=== PATIENT | male | born 1990 | race Caucasian/White ===

== ENCOUNTER 2018-08-20 09:05 | Emergency (ER) | payer BC ==
[2018-08-20] MEDS ORDERED: Ketorolac 60 MG/2 ML SDV IM ONE (09:26)
--- NOTE | 2018-08-20 09:44 | EDM.PDOC ---
ED HPI GENERAL MEDICAL PROBLEM - General Chief Complaint: Flank Pain Stated Complaint: KIDNEY PAIN Time Seen by Provider: 08/20/18 09:43 - History of Present Illness INITIAL COMMENTS - FREE TEXT/NARRATIVE: HISTORY AND PHYSICAL: History of present illness: Patient is 27-year-old white male presents with concern of bilateral flank pain he states is across his low back he has been lifting weights quite enthusiastically as of late with heavier weight but he does not recall specific injury he denies history of urolithiasis is been no vomiting diarrhea or other complaints. Review of systems: As per history of present illness and below otherwise all systems reviewed and negative. Past medical history: As per history of present illness and as reviewed below otherwise noncontributory. Surgical history: As per history of present illness and as reviewed below otherwise noncontributory. Social history: No reported history of drug or alcohol abuse. Family history: As per history of present illness and as reviewed below otherwise noncontributory. Physical exam: HEENT: Atraumatic, normocephalic, pupils reactive, negative for conjunctival pallor or scleral icterus, mucous membranes moist, throat clear, neck supple, nontender, trachea midline. Lungs: Clear to auscultation, breath sounds equal bilaterally, chest nontender. Heart: S1S2, regular, negative for clicks, rubs, or JVD. Abdomen: Soft, nondistended, nontender. Negative for masses or hepatosplenomegaly. Bilateral costovertebral tenderness. Pelvis: Stable nontender. Genitourinary: Deferred. Rectal: Deferred. Extremities: Atraumatic, negative for cords or calf pain. Neurovascular unremarkable. Neuro: Awake, alert, oriented. Cranial nerves II through XII unremarkable. Cerebellum unremarkable. Motor and sensory unremarkable throughout. Exam nonfocal. Diagnostics: CBC CMP UA Therapeutics: Toradol 60 mg IM Impression: #1 bilateral flank pain Definitive disposition and diagnosis as appropriate pending reevaluation and review of above. Bilateral Flank Pain Score (Numeric/FACES): 8 - Related Data Allergies Allergy/AdvReac Type Severity Reaction Status Date / Time No Known Allergies Allergy Verified 08/20/18 09:22 Home Meds: Home Meds . [No Known Home Meds] 08/20/18 [History] Past Medical History Respiratory History: Reports: Asthma Social & Family History - Family History Family Medical History: Noncontributory - Tobacco Use Smoking Status *Q: Never Smoker - Caffeine Use Caffeine Use: Reports: Energy Drinks Caffeine Use Comment: 1 drink/day - Recreational Drug Use Recreational Drug Use: No ED ROS GENERAL - Review of Systems Review Of Systems: ROS reveals no pertinent complaints other than HPI. ED EXAM, GENERAL - Physical Exam Exam: See Below (The dictation) Course - Vital Signs Last Recorded V/S: Last Vital Signs Temp 36.2 C 08/20/18 09:19 Pulse 86 08/20/18 09:19 Resp 18 08/20/18 09:19 BP 150/95 H 08/20/18 09:19 Pulse Ox 96 08/20/18 09:19 - Orders/Labs/Meds Labs: Laboratory Tests 08/20/18 08/20/18 08/20/18 Range/Units 09:26 09:37 09:37 WBC 5.89 (4.0-11.0) K/uL RBC 5.23 (4.50-5.90) M/uL Hgb 15.4 (13.0-17.0) g/dL Hct 46.2 (38.0-50.0) % MCV 88.3 (80.0-98.0) fL MCH 29.4 (27.0-32.0) pg MCHC 33.3 (31.0-37.0) g/dL RDW Std Deviation 41.7 (28.0-62.0) fl RDW Coeff of Una 13 (11.0-15.0) % Plt Count 227 (150-400) K/uL MPV 11.40 (7.40-12.00) fL Neut % (Auto) 46.0 L (48.0-80.0) % Lymph % (Auto) 37.9 (16.0-40.0) % [place] % (Auto) 8.3 (0.0-15.0) % Eos % (Auto) 7.3 H (0.0-7.0) % Baso % (Auto) 0.5 (0.0-1.5) % Neut # (Auto) 2.7 (1.4-5.7) K/uL Lymph # (Auto) 2.2 (0.6-2.4) K/uL [place] # (Auto) 0.5 (0.0-0.8) K/uL Eos # (Auto) 0.4 (0.0-0.7) K/uL Baso # (Auto) 0.0 (0.0-0.1) K/uL Nucleated RBC % 0.0 /100WBC Nucleated RBCs # 0 K/uL Sodium 138 (136-148) mmol/L Potassium 4.0 (3.5-5.1) mmol/L Chloride 103 (98-107) mmol/L Carbon Dioxide 27.4 (21.0-32.0) mmol/L BUN 15 (7.0-18.0) mg/dL Creatinine 1.0 (0.8-1.3) mg/dL Est Cr Clr Drug Dosing 111.94 mL/min Estimated GFR (MDRD) > 60.0 ml/min Glucose 97 (74-106) mg/dL Calcium 9.8 (8.5-10.1) mg/dL Total Bilirubin 0.7 (0.2-1.0) mg/dL AST 26 (15-37) IU/L ALT 52 (14-63) IU/L Alkaline Phosphatase 73 (46-116) U/L Total Protein 7.9 (6.4-8.2) g/dL Albumin 4.0 (3.4-5.0) g/dL Globulin 3.9 (2.6-4.0) g/dL Albumin/Globulin Ratio 1.0 (0.9-1.6) Urine Color YELLOW Urine Appearance CLEAR Urine pH 6.5 (5.0-8.0) Ur Specific [place] 1.020 (1.001-1.035) Urine Protein NEGATIVE (NEGATIVE) mg/dL Urine Glucose (UA) NEGATIVE (NEGATIVE) mg/dL Urine Ketones NEGATIVE (NEGATIVE) mg/dL Urine Occult Blood NEGATIVE (NEGATIVE) Urine Nitrite NEGATIVE (NEGATIVE) Urine Bilirubin NEGATIVE (NEGATIVE) Urine Urobilinogen 0.2 (<2.0) EU/dL Ur Leukocyte Esterase NEGATIVE (NEGATIVE) Meds: Medications Discontinued Medications Generic Name Dose Route Start Last Admin Trade Name Freq PRN Reason Stop Dose Admin Ketorolac Tromethamine 60 mg 08/20/18 09:26 08/20/18 09:33 Toradol IM 08/20/18 09:27 60 mg ONETIME ONE Administration Departure - Departure Time of Disposition: 10:25 Disposition: Home, Self-Care 01 Condition: Good Clinical Impression: Flank pain - Discharge Information Referrals: PCP,Unknown [Primary Care Provider] - Forms: ED Department Discharge Additional Instructions: The following information is given to patients seen in the emergency department who are being discharged to home. This information is to outline your options for follow-up care. We provide all patients seen in our emergency department with a follow-up referral. The need for follow-up, as well as the timing and circumstances, are variable depending upon the specifics of your emergency department visit. If you don't have a primary care physician on staff, we will provide you with a referral. We always advise you to contact your personal physician following an emergency department visit to inform them of the circumstance of the visit and for follow-up with them and/or the need for any referrals to a consulting specialist. The emergency department will also refer you to a specialist when appropriate. This referral assures that you have the opportunity for followup care with a specialist. All of these measure are taken in an effort to provide you with optimal care, which includes your followup. Under all circumstances we always encourage you to contact your private physician who remains a resource for coordinating your care. When calling for followup care, please make the office aware that this follow-up is from your recent emergency room visit. If for any reason you are refused follow-up, please contact the [facility] emergency department at and asked to speak to the emergency department charge nurse. [facility] [address] [place] [id number] Ultram as prescribed follow-up private medical doctor in our clinic above is needed as discussed and return as needed as discussed
[2018-08-20 10:18] LABS: CHLORIDE,CL 103 mmol/L (98-107); SODIUM,NA 138 mmol/L (136-148)
[2018-08-20 10:38] VITALS: BP 153/83
== END 2018-08-20 10:37 | disposition home or self-care (01) ==
LOC: MW.ED 09:05
DX: R10.9 Unspecified abdominal pain (principal)
CPT/HCPCS: 36415; 80053; 81003; 85025; 96372; 99283; J1885

== ENCOUNTER 2020-05-27 13:45 | Emergency (ER) | payer BC ==
[2020-05-27] MEDS ORDERED: Sodium Chloride 0.9% 10 ML Syringe FLUSH PRN (14:06)
[2020-05-27] MEDS ORDERED: Sodium Chloride 0.9% 1,000 ML IV ONE (14:06)
[2020-05-27] MEDS ORDERED: Sodium Chloride 0.9% 2.5 ML Syringe FLUSH PRN (14:06)
[2020-05-27] MEDS ORDERED: Ketorolac 30 MG/ML SDV IVPUSH ONE (14:06)
[2020-05-27 14:53] LABS: BLOOD UREA NITROGEN,BUN 15 mg/dL (7.0-18.0); CARBON DIOXIDE,CO2 28.2 mmol/L (21.0-32.0); CHLORIDE,CL 103 mmol/L (98-107); GLUCOSE RANDOM 91 mg/dL (74-106); POTASSIUM,K 4.2 mmol/L (3.5-5.1); SODIUM,NA 140 mmol/L (136-148)
[2020-05-27] MEDS ORDERED: Iopamidol 755 Mg/ML 100 ML Bottle IVPUSH STA (15:19)
--- NOTE | 2020-05-27 15:31 | CT ---
Indication: Right inguinal pain, hernia Technique: Volumetric multidetector CT images of the abdomen and pelvis were obtained after the administration of intravenous contrast. 100 cc Isovue-300 Comparison: None available. Findings: The lung bases are clear. The liver is normal in attenuation without intrahepatic biliary ductal dilatation. The portal vein is patent. The gallbladder is unremarkable without evidence of radiopaque calculus. There is no significant common biliary ductal dilatation or abrupt cut off. The spleen is normal in enhancement and size. The stomach and duodenum are grossly unremarkable. The pancreas is normal in enhancement without significant atrophy. The adrenal glands are unremarkable. The kidneys demonstrate preserved corticomedullary differentiation without evidence of obstructive uropathy. There is a moderate amount of stool is seen throughout the colon. No evidence of inflammatory changes. The appendix is unremarkable. There is no significant mesenteric, retroperitoneal, or pelvic sidewall lymph nodes. The aorta is nonaneurysmal. There is no significant atherosclerotic disease appreciated. The solid pelvic viscera are grossly unremarkable. There is no free fluid or free air. There is a small fat containing umbilical hernia appreciated. There is no evidence of inguinal hernia. The lumbar vertebral body heights are grossly maintained in satisfactory alignment without evidence of displaced fracture, lytic or blastic lesion. Impression: Demonstration of a small fat containing umbilical hernia. No evidence of inguinal hernia. Normal appendix. Please note that all CT scans at this facility use dose modulation, iterative reconstruction, and/or weight-based dosing when appropriate to reduce radiation dose to as low as reasonably achievable. Dictated by Juan Ramon Park MD @ May 27 2020 3:26PM Signed by Dr. Juan Ramon Park @ May 27 2020 3:30PM
--- NOTE | 2020-05-27 16:22 | EDM.PDOC ---
ED HPI GENERAL MEDICAL PROBLEM - General Chief Complaint: Genitourinary Problem Stated Complaint: PAIN IN GROIN Time Seen by Provider: 05/27/20 14:00 - History of Present Illness INITIAL COMMENTS - FREE TEXT/NARRATIVE: HISTORY AND PHYSICAL: History of present illness: This is a 29-year-old gentleman who presents ER today complaining of pain to his right groin that started earlier today. Patient denies any recent fevers, kevin es, chills, nausea, vomiting, diarrhea, dysuria, frequency, urgency, penile discharge. Patient denies any testicular pain. Patient denies any swelling to his scrotum or testicles. Patient denies any hematuria. Patient has any flank pain. Patient denies any pain to his right lower quadrant. Patient reports the pain is strictly in his right inguinal region. Patient reports no recent episodes of heavy lifting or straining. Patient denies any blood in the stool or dark black stools. Patient denies any prior history of hernias. No change in bowel or bladder habits. Patient is moving his bowels well and is passing gas without any difficulties. Review of systems: As per history of present illness and below otherwise all systems reviewed and negative. Past medical history: As per history of present illness and as reviewed below otherwise noncontributory. Surgical history: As per history of present illness and as reviewed below otherwise noncontributory. Social history: No reported history of drug or alcohol abuse. Family history: As per history of present illness and as reviewed below otherwise noncontributory. Physical exam: Constitutional: Patient is oriented to person, place, and time. Appears well- developed and well-nourished. No distress. HEENT: Moist mucous membranes Head: Normocephalic and atraumatic Eyes: Right eye exhibits no discharge. Left eye exhibits no discharge. No scleral icterus Neck: Normal range of motion. No tracheal deviation present. Cardiovascular: Normal rate and regular rhythm. Pulmonary: Effort normal, no respiratory distress. Abdominal: No distention Musculoskeletal: Normal range of motion Neurologic: Alert and oriented to person, place and time. Skin: [place], warm and dry. Psychiatric: Normal mood and affect. Behavior is normal. Judgment and thought content normal. Nursing note and vital signs have been reviewed Patient's ER physical exam is significant for normal testes, normal, static reflex, nontender epididymis, patient was tenderness palpation in his right inguinal region. No masses or palpable lesions identified. Diagnostics: CBC, CMP, UA within normal limits. CT of the abdomen pelvis reveals an umbilical hernia. No evidence of inguinal hernia identified. No edema or erythema. Therapeutics: Toradol IV given Assessment and plan: 29-year-old gentleman who presents ER today with pain to his right groin that appears to be most likely consistent with a right inguinal hernia. No evidence of incarceration or strangulation. Patient's testes are nontender. No indication for ultrasound of the scrotum or testicles. Patient is clinically hemodynamically stable at this time. Patient CT scan did not show inflammatory changes or signs or symptoms that would indirectly be consistent with an incarceration or strangulated hernia. Patient was given Toradol IV in the ED and reports his pain has significantly improved. Patient does look much more comfortable after the Toradol. Reassessment at the time of disposition demonstrates that the patient is in no acute distress. The patient has remained stable throughout the entire ED visit and is without objective evidence for acute process requiring urgent intervention or hospitalization. The patient is stable for discharge, counseling is provided as documented above, discussed symptomatic treatment and specific conditions for return. I have spoken with the patient/caregiver and discussed todays findings, in addition to providing specific details for the plan of care. Questions are answered and there is agreement with the plan. Definitive disposition and diagnosis as appropriate pending reevaluation and review of above. groin Pain Score (Numeric/FACES): 7 - Related Data Allergies Allergy/AdvReac Type Severity Reaction Status Date / Time No Known Allergies Allergy Verified 05/27/20 13:56 Home Meds: Home Meds Fluticasone Propion/Salmeterol [Advair 250-50 Diskus] 1 puff INH DAILY 05/27/20 [History] Ibuprofen 600 mg PO Q6HR PRN #30 tablet 05/27/20 [Rx] Past Medical History Respiratory History: Reports: Asthma Musculoskeletal History: Reports: Other (See Below) Other Musculoskeletal History: sculiosis - Infectious Disease History Infectious Disease History: Reports: None Social & Family History - Family History Family Medical History: Noncontributory - Tobacco Use Tobacco Use Status *Q: Former Tobacco User Used Tobacco, but Quit: Yes Month/Year Tobacco Last Used: 2017 - Caffeine Use Caffeine Use: Reports: Energy Drinks Caffeine Use Comment: 1 drink/day - Recreational Drug Use Recreational Drug Use: No ED ROS GENERAL - Review of Systems Review Of Systems: See Below ED EXAM, GENERAL - Physical Exam Exam: See Below Course - Vital Signs Last Recorded V/S: Last Vital Signs Temp 97.3 F 05/27/20 13:56 Pulse 103 H 05/27/20 13:56 Resp 20 05/27/20 13:56 BP 140/92 H 05/27/20 13:56 Pulse Ox 97 05/27/20 13:56 - Orders/Labs/Meds Orders: Active Orders 24 hr Category Date Time Status Sodium Chloride 0.9% [Saline Flush] Med 05/27/20 14:06 Active 10 ml FLUSH ASDIRECTED PRN Sodium Chloride 0.9% [Saline Flush] Med 05/27/20 14:06 Active 2.5 ml FLUSH ASDIRECTED PRN Saline Lock Insert [OM.PC] Stat Oth 05/27/20 14:06 Ordered Medication Orders Sodium Chloride (Saline Flush) 10 ml FLUSH ASDIRECTED PRN PRN Reason: Keep Vein Open Last Admin: 05/27/20 14:25 Dose: 10 ml Documented by: [id number] Sodium Chloride (Saline Flush) 2.5 ml FLUSH ASDIRECTED PRN PRN Reason: Keep Vein Open Last Admin: 05/27/20 14:25 Dose: 2.5 ml Documented by: [email or web address] Labs: Laboratory Tests 05/27/20 05/27/20 05/27/20 Range/Units 14:20 14:20 14:52 WBC 7.12 (4.0-11.0) K/uL RBC 4.79 (4.50-5.90) M/uL Hgb 13.9 (13.0-17.0) g/dL Hct 43.3 (38.0-50.0) % MCV 90.4 (80.0-98.0) fL MCH 29.0 (27.0-32.0) pg MCHC 32.1 (31.0-37.0) g/dL RDW Std Deviation 44.5 (28.0-62.0) fl RDW Coeff of Una 14 (11.0-15.0) % Plt Count 225 (150-400) K/uL MPV 11.10 (7.40-12.00) fL Neut % (Auto) 68.0 (48.0-80.0) % Lymph % (Auto) 20.6 (16.0-40.0) % [place] % (Auto) 10.3 (0.0-15.0) % Eos % (Auto) 0.7 (0.0-7.0) % Baso % (Auto) 0.4 (0.0-1.5) % Neut # (Auto) 4.8 (1.4-5.7) K/uL Lymph # (Auto) 1.5 (0.6-2.4) K/uL [place] # (Auto) 0.7 (0.0-0.8) K/uL Eos # (Auto) 0.1 (0.0-0.7) K/uL Baso # (Auto) 0.0 (0.0-0.1) K/uL Nucleated RBC % 0.0 /100WBC Nucleated RBCs # 0 K/uL Sodium 140 (136-148) mmol/L Potassium 4.2 (3.5-5.1) mmol/L Chloride 103 (98-107) mmol/L Carbon Dioxide 28.2 (21.0-32.0) mmol/L BUN 15 (7.0-18.0) mg/dL Creatinine 0.9 (0.8-1.3) mg/dL Est Cr Clr Drug Dosing 118.22 mL/min Estimated GFR (MDRD) > 60.0 ml/min Glucose 91 (74-106) mg/dL Calcium 9.2 (8.5-10.1) mg/dL Total Bilirubin 0.7 (0.2-1.0) mg/dL AST 22 (15-37) IU/L ALT 32 (14-63) IU/L Alkaline Phosphatase 57 (46-116) U/L Total Protein 7.3 (6.4-8.2) g/dL Albumin 3.8 (3.4-5.0) g/dL Globulin 3.5 (2.6-4.0) g/dL Albumin/Globulin Ratio 1.1 (0.9-1.6) Urine Color YELLOW Urine Appearance CLEAR Urine pH 6.0 (5.0-8.0) Ur Specific [place] 1.025 (1.001-1.035) Urine Protein NEGATIVE (NEGATIVE) mg/dL Urine Glucose (UA) NEGATIVE (NEGATIVE) mg/dL Urine Ketones NEGATIVE (NEGATIVE) mg/dL Urine Occult Blood NEGATIVE (NEGATIVE) Urine Nitrite NEGATIVE (NEGATIVE) Urine Bilirubin NEGATIVE (NEGATIVE) Urine Urobilinogen 0.2 (<2.0) EU/dL Ur Leukocyte Esterase NEGATIVE (NEGATIVE) Meds: Medications Generic Name Dose Route Start Last Admin Trade Name Freq PRN Reason Stop Dose Admin Sodium Chloride 10 ml 05/27/20 14:06 05/27/20 14:25 Saline Flush FLUSH 10 ml ASDIRECTED PRN Administration Keep Vein Open Sodium Chloride 2.5 ml 05/27/20 14:06 05/27/20 14:25 Saline Flush FLUSH 2.5 ml ASDIRECTED PRN Administration Keep Vein Open Discontinued Medications Generic Name Dose Route Start Last Admin Trade Name Freq PRN Reason Stop Dose Admin Sodium Chloride 1,000 mls @ 999 mls/hr 05/27/20 14:06 05/27/20 14:25 Normal Saline IV 05/27/20 15:06 999 mls/hr .Bolus ONE Administration Iopamidol 100 ml 05/27/20 15:19 05/27/20 15:20 Isovue-370 (76%) IVPUSH 05/27/20 15:20 100 ml ONETIME STA Administration Ketorolac Tromethamine 30 mg 05/27/20 14:06 05/27/20 14:24 Toradol IVPUSH 05/27/20 14:07 30 mg ONETIME ONE Administration Departure - Departure Time of Disposition: 16:21 Disposition: Home, Self-Care 01 Condition: Good Clinical Impression: Right groin pain, Right inguinal hernia - Discharge Information Instructions: Inguinal Hernia, Adult, [id number] Referrals: PCP,None [Primary Care Provider] - Additional Instructions: You were seen and evaluated in the ER today secondary to pain to your right groin. The etiology of the pain is not entirely clear however it appears to be most consistent with possible inguinal hernia. At this time, the CT scan that we obtained does not show any evidence of strangulation or incarceration of the hernia. You will be given the phone number for surgery to follow-up with so they can further evaluate you for need for treatment of hernia. You will be given a prescription for ibuprofen 600 mg 4 times a day to help you with pain. Please get plenty of rest over the next 2 days. The following information is given to patients seen in the emergency department who are being discharged to home. This information is to outline your options for follow-up care. We provide all patients seen in our emergency department with a follow-up referral. The need for follow-up, as well as the timing and circumstances, are variable depending upon the specifics of your emergency department visit. If you don't have a primary care physician on staff, we will provide you with a referral. We always advise you to contact your personal physician following an emergency department visit to inform them of the circumstance of the visit and for follow-up with them and/or the need for any referrals to a consulting specialist. The emergency department will also refer you to a specialist when appropriate. This referral assures that you have the opportunity for follow-up care with a specialist. All of these measure are taken in an effort to provide you with optimal care, which includes your follow-up. Under all circumstances we always encourage you to contact your private physician who remains a resource for coordinating your care. When calling for follow-up care, please make the office aware that this follow-up is from your recent emergency room visit. If for any reason you are refused follow-up, please contact the [facility] Emergency Department at and asked to speak to the emergency department charge nurse. [facility] [address] [place], [place] [id number] [address] [address] Sepsis Event Note (ED) - Evaluation Sepsis Screening Result: No Definite Risk - Focused Exam Vital Signs: Vital Signs Temp Pulse Resp BP Pulse Ox 05/27/20 13:56 97.3 F 103 H 20 140/92 H 97 - My Orders Last 24 Hours: My Active Orders 05/27/20 14:06 Sodium Chloride 0.9% [Saline Flush] 10 ml FLUSH ASDIRECTED PRN Sodium Chloride 0.9% [Saline Flush] 2.5 ml FLUSH ASDIRECTED PRN Saline Lock Insert [OM.PC] Stat - Assessment/Plan Last 24 Hours: My Active Orders 05/27/20 14:06 Sodium Chloride 0.9% [Saline Flush] 10 ml FLUSH ASDIRECTED PRN Sodium Chloride 0.9% [Saline Flush] 2.5 ml FLUSH ASDIRECTED PRN Saline Lock Insert [OM.PC] Stat
[2020-05-27 18:49] VITALS: BP 116/65; PULSE 84
== END 2020-05-27 16:33 | disposition home or self-care (01) ==
LOC: MW.ED 13:45
DX: K40.90 Unilateral inguinal hernia, without obstruction or gangrene, not specified as recurrent (principal); J45.909 Unspecified asthma, uncomplicated; M41.9 Scoliosis, unspecified; Z87.891 Personal history of nicotine dependence
CPT/HCPCS: 74177; 80053; 81003; 85025; 96374; 99284; J1885; J7030; Q9967

== ENCOUNTER 2020-06-02 10:21 | Emergency (ER) | payer BC ==
--- NOTE | 2020-06-02 10:34 | EDM.PDOC ---
ED HPI GENERAL MEDICAL PROBLEM - General Chief Complaint: General Stated Complaint: HERNIA Time Seen by Provider: 06/02/20 10:27 Source of Information: Reports: Patient History Limitations: Reports: No Limitations - History of Present Illness INITIAL COMMENTS - FREE TEXT/NARRATIVE: 29-year-old male past medical history right inguinal hernia presents for concern for hernia. Patient notes that he was seen in the emergency department last week and for right pelvic/testicular pain. He had a work-up done including a CT scan which he said showed that he had a hernia. He thinks it was "an inaugural hernia". He had some continued pain, but this morning the pain became acutely worse. Sharp stabbing in quality. No associated nausea vomiting. No fevers. No penile discharge. right groin Pain Score (Numeric/FACES): 7 - Related Data Allergies Allergy/AdvReac Type Severity Reaction Status Date / Time No Known Allergies Allergy Verified 05/27/20 13:56 Home Meds: Home Meds Fluticasone Propion/Salmeterol [Advair 250-50 Diskus] 1 puff INH DAILY 05/27/20 [History] Ibuprofen 600 mg PO Q6HR PRN #30 tablet 05/27/20 [Rx] Albuterol Sulfate [Proair Hfa] 1 puff INH ASDIRECTED 06/02/20 [History] Past Medical History Respiratory History: Reports: Asthma Musculoskeletal History: Reports: Other (See Below) Other Musculoskeletal History: sculiosis - Infectious Disease History Infectious Disease History: Reports: None Social & Family History - Family History Family Medical History: No Pertinent Family History - Caffeine Use Caffeine Use: Reports: Energy Drinks Caffeine Use Comment: 1 drink/day ED ROS GENERAL - Review of Systems Review Of Systems: Comprehensive ROS is negative, except as noted in HPI. ED EXAM, GENERAL - Physical Exam Exam: See Below Exam Limited By: No Limitations General Appearance: Alert, WD/WN, No Apparent Distress Throat/Mouth: Normal Voice, No Airway Compromise Head: Atraumatic, Normocephalic Neck: Normal Inspection Respiratory/Chest: No Respiratory Distress, Lungs Clear, Normal Breath Sounds, No Accessory Muscle Use Cardiovascular: Normal Peripheral Pulses, Regular Rate, Rhythm GI/Abdominal: Soft, Non-Tender (Male) Exam: No Hernia, Other (TTP of R inguinal area without palpable hernia defect, mild TTP of R sctroum without swelling/redness/warmth). No: Penile Lesions, Testicular Mass Extremities: Normal Inspection Neurological: Alert, Normal Gait Psychiatric: Normal Affect, Normal Mood Skin Exam: Warm, Dry, Intact, Normal Color Course - Vital Signs Last Recorded V/S: Last Vital Signs Temp 98 F 06/02/20 10:40 Pulse 78 06/02/20 10:40 Resp 16 06/02/20 10:40 BP 118/74 06/02/20 10:40 Pulse Ox 96 06/02/20 10:40 - Orders/Labs/Meds Orders: Active Orders 24 hr Category Date Time Status Scrotum and Contents [US] Stat Exams 06/02/20 11:00 Taken CHLAMYDIA AND GONORRHEA BY TMA Stat Lab 06/02/20 11:33 Received Sodium Chloride 0.9% [Saline Flush] Med 06/02/20 11:01 Active 10 ml FLUSH ASDIRECTED PRN Sodium Chloride 0.9% [Saline Flush] Med 06/02/20 11:01 Active 2.5 ml FLUSH ASDIRECTED PRN Saline Lock Insert [OM.PC] Stat Oth 06/02/20 11:01 Ordered Medication Orders Sodium Chloride (Saline Flush) 10 ml FLUSH ASDIRECTED PRN PRN Reason: Keep Vein Open Last Admin: 06/02/20 11:39 Dose: 10 ml Documented by: JACINTA Sodium Chloride (Saline Flush) 2.5 ml FLUSH ASDIRECTED PRN PRN Reason: Keep Vein Open Last Admin: 06/02/20 11:39 Dose: 2.5 ml Documented by: JACINTA Labs: Laboratory Tests 06/02/20 06/02/20 06/02/20 Range/Units 11:13 11:13 11:13 WBC 4.40 (4.0-11.0) K/uL RBC 4.71 (4.50-5.90) M/uL Hgb 13.8 (13.0-17.0) g/dL Hct 41.9 (38.0-50.0) % MCV 89.0 (80.0-98.0) fL MCH 29.3 (27.0-32.0) pg MCHC 32.9 (31.0-37.0) g/dL RDW Std Deviation 42.9 (28.0-62.0) fl RDW Coeff of Una 13 (11.0-15.0) % Plt Count 227 (150-400) K/uL MPV 10.80 (7.40-12.00) fL Neut % (Auto) 50.2 (48.0-80.0) % Lymph % (Auto) 38.4 (16.0-40.0) % Towner % (Auto) 8.9 (0.0-15.0) % Eos % (Auto) 2.0 (0.0-7.0) % Baso % (Auto) 0.5 (0.0-1.5) % Neut # (Auto) 2.2 (1.4-5.7) K/uL Lymph # (Auto) 1.7 (0.6-2.4) K/uL Towner # (Auto) 0.4 (0.0-0.8) K/uL Eos # (Auto) 0.1 (0.0-0.7) K/uL Baso # (Auto) 0.0 (0.0-0.1) K/uL Nucleated RBC % 0.0 /100WBC Nucleated RBCs # 0 K/uL Lactate 0.5 (0.20-2.00) mmol/L Sodium 138 (136-148) mmol/L Potassium 4.0 (3.5-5.1) mmol/L Chloride 102 (98-107) mmol/L Carbon Dioxide 26.6 (21.0-32.0) mmol/L BUN 17 (7.0-18.0) mg/dL Creatinine 0.9 (0.8-1.3) mg/dL Est Cr Clr Drug Dosing 118.22 mL/min Estimated GFR (MDRD) > 60.0 ml/min Glucose 82 (74-106) mg/dL Calcium 8.8 (8.5-10.1) mg/dL Total Bilirubin 0.8 (0.2-1.0) mg/dL AST 24 (15-37) IU/L ALT 34 (14-63) IU/L Alkaline Phosphatase 62 (46-116) U/L Total Protein 7.5 (6.4-8.2) g/dL Albumin 3.9 (3.4-5.0) g/dL Globulin 3.6 (2.6-4.0) g/dL Albumin/Globulin Ratio 1.1 (0.9-1.6) Lipase 74 (73-393) U/L Urine Color Urine Appearance Urine pH (5.0-8.0) Ur Specific [place] (1.001-1.035) Urine Protein (NEGATIVE) mg/dL Urine Glucose (UA) (NEGATIVE) mg/dL Urine Ketones (NEGATIVE) mg/dL Urine Occult Blood (NEGATIVE) Urine Nitrite (NEGATIVE) Urine Bilirubin (NEGATIVE) Urine Urobilinogen (<2.0) EU/dL Ur Leukocyte Esterase (NEGATIVE) 06/02/20 Range/Units 11:33 WBC (4.0-11.0) K/uL RBC (4.50-5.90) M/uL Hgb (13.0-17.0) g/dL Hct (38.0-50.0) % MCV (80.0-98.0) fL MCH (27.0-32.0) pg MCHC (31.0-37.0) g/dL RDW Std Deviation (28.0-62.0) fl RDW Coeff of Una (11.0-15.0) % Plt Count (150-400) K/uL MPV (7.40-12.00) fL Neut % (Auto) (48.0-80.0) % Lymph % (Auto) (16.0-40.0) % Towner % (Auto) (0.0-15.0) % Eos % (Auto) (0.0-7.0) % Baso % (Auto) (0.0-1.5) % Neut # (Auto) (1.4-5.7) K/uL Lymph # (Auto) (0.6-2.4) K/uL Towner # (Auto) (0.0-0.8) K/uL Eos # (Auto) (0.0-0.7) K/uL Baso # (Auto) (0.0-0.1) K/uL Nucleated RBC % /100WBC Nucleated RBCs # K/uL Lactate (0.20-2.00) mmol/L Sodium (136-148) mmol/L Potassium (3.5-5.1) mmol/L Chloride (98-107) mmol/L Carbon Dioxide (21.0-32.0) mmol/L BUN (7.0-18.0) mg/dL Creatinine (0.8-1.3) mg/dL Est Cr Clr Drug Dosing mL/min Estimated GFR (MDRD) ml/min Glucose (74-106) mg/dL Calcium (8.5-10.1) mg/dL Total Bilirubin (0.2-1.0) mg/dL AST (15-37) IU/L ALT (14-63) IU/L Alkaline Phosphatase (46-116) U/L Total Protein (6.4-8.2) g/dL Albumin (3.4-5.0) g/dL Globulin (2.6-4.0) g/dL Albumin/Globulin Ratio (0.9-1.6) Lipase (73-393) U/L Urine Color YELLOW Urine Appearance CLEAR Urine pH 6.5 (5.0-8.0) Ur Specific [place] 1.025 (1.001-1.035) Urine Protein NEGATIVE (NEGATIVE) mg/dL Urine Glucose (UA) NEGATIVE (NEGATIVE) mg/dL Urine Ketones NEGATIVE (NEGATIVE) mg/dL Urine Occult Blood NEGATIVE (NEGATIVE) Urine Nitrite NEGATIVE (NEGATIVE) Urine Bilirubin NEGATIVE (NEGATIVE) Urine Urobilinogen 0.2 (<2.0) EU/dL Ur Leukocyte Esterase NEGATIVE (NEGATIVE) Meds: Medications Generic Name Dose Route Start Last Admin Trade Name Freq PRN Reason Stop Dose Admin Sodium Chloride 10 ml 06/02/20 11:01 06/02/20 11:39 Saline Flush FLUSH 10 ml ASDIRECTED PRN Administration Keep Vein Open Sodium Chloride 2.5 ml 06/02/20 11:01 06/02/20 11:39 Saline Flush FLUSH 2.5 ml ASDIRECTED PRN Administration Keep Vein Open Discontinued Medications Generic Name Dose Route Start Last Admin Trade Name Freq PRN Reason Stop Dose Admin Ketorolac Tromethamine 15 mg 06/02/20 11:04 06/02/20 11:37 Toradol IVPUSH 06/02/20 11:05 15 mg ONETIME ONE Administration Morphine Sulfate 4 mg 06/02/20 11:01 06/02/20 11:24 Morphine IVPUSH 06/02/20 11:02 Not Given ONETIME ONE - Re-Assessments/Exams Free Text/Narrative Re-Assessment/Exam: 06/02/20 11:09 Will get labs, will treat pain symptomatically, will get testicular ultrasound. On chart review, patient is noted to not have a right inguinal hernia as originally thought, CT scan was remarkable for a small umbilical hernia without bowel. Right inguinal area appeared normal on CT imaging. 06/02/20 12:11 US is unremarkable; G/C testing pending although low suspicion, patient to be called back if positive. Will d/c with percocet for analgesia and urology f/u recommended. Departure - Departure Time of Disposition: 12:11 Disposition: Home, Self-Care 01 Condition: Good Clinical Impression: Right inguinal pain - Discharge Information Referrals: PCP,None [Primary Care Provider] - Forms: ED Department Discharge Additional Instructions: Your labs are all unremarkable. Your STD tests are pending, and if positive you will be called back. Your testicular ultrasound shows small bilateral hydroceles which are fluid collections within the testicles that are not dangerous and are typically not painful. I do not think this is related to the pain that you are having. Your CT scan from last week showed a small umbilical fat-containing hernia without bowel. I also do not think this is likely related to the pain that you are having. I would follow-up with a urologist. Information is provided below. If your pain is to strong, you develop nausea or vomiting, or fevers, you should return to the emergency department. [facility] [address] [place] [id number] The following information is given to patients seen in the emergency department who are being discharged to home. This information is to outline your options for follow-up care. We provide all patients seen in our emergency department with a follow-up referral. The need for follow-up, as well as the timing and circumstances, are variable depending upon the specifics of your emergency department visit. If you don't have a primary care physician on staff, we will provide you with a referral. We always advise you to contact your personal physician following an emergency department visit to inform them of the circumstance of the visit and for follow-up with them and/or the need for any referrals to a consulting specialist. The emergency department will also refer you to a specialist when appropriate. This referral assures that you have the opportunity for follow-up care with a specialist. All of these measure are taken in an effort to provide you with optimal care, which includes your follow-up. Under all circumstances we always encourage you to contact your private physician who remains a resource for coordinating your care. When calling for follow-up care, please make the office aware that this follow-up is from your recent emergency room visit. If for any reason you are refused follow-up, please contact the [facility] Emergency Department at and asked to speak to the emergency department charge nurse. Please follow up with your primary care physician. If you do not have a primary care physician, see below: [facility] [address] [place] [id number] My [facility] [address] [place] [address] Sepsis Event Note (ED) - Focused Exam Vital Signs: Vital Signs Temp Pulse Resp BP Pulse Ox 06/02/20 10:40 98 F 78 16 118/74 96 - My Orders Last 24 Hours: My Active Orders 06/02/20 11:00 Scrotum and Contents [US] Stat 06/02/20 11:01 Sodium Chloride 0.9% [Saline Flush] 10 ml FLUSH ASDIRECTED PRN Sodium Chloride 0.9% [Saline Flush] 2.5 ml FLUSH ASDIRECTED PRN Saline Lock Insert [OM.PC] Stat 06/02/20 11:33 CHLAMYDIA AND GONORRHEA BY TMA Stat - Assessment/Plan Last 24 Hours: My Active Orders 06/02/20 11:00 Scrotum and Contents [US] Stat 06/02/20 11:01 Sodium Chloride 0.9% [Saline Flush] 10 ml FLUSH ASDIRECTED PRN Sodium Chloride 0.9% [Saline Flush] 2.5 ml FLUSH ASDIRECTED PRN Saline Lock Insert [OM.PC] Stat 06/02/20 11:33 CHLAMYDIA AND GONORRHEA BY TMA Stat
[2020-06-02] MEDS ORDERED: Morphine 4 MG/ML Syringe IVPUSH ONE (11:01)
[2020-06-02] MEDS ORDERED: Sodium Chloride 0.9% 10 ML Syringe FLUSH PRN (11:01)
[2020-06-02] MEDS ORDERED: Sodium Chloride 0.9% 2.5 ML Syringe FLUSH PRN (11:01)
[2020-06-02] MEDS ORDERED: Ketorolac 30 MG/ML SDV IVPUSH ONE (11:04)
[2020-06-02 11:54] LABS: BLOOD UREA NITROGEN,BUN 17 mg/dL (7.0-18.0); CARBON DIOXIDE,CO2 26.6 mmol/L (21.0-32.0); CHLORIDE,CL 102 mmol/L (98-107); GLUCOSE RANDOM 82 mg/dL (74-106); LIPASE 74 U/L (73-393); SODIUM,NA 138 mmol/L (136-148)
--- NOTE | 2020-06-02 12:04 | US ---
Indication: Testicular pain Technique: Sonography of the scrotum and its contents was performed. The study was performed by grayscale, color Doppler and spectral Doppler Comparison: None Findings: The testes are normal in size and configuration. There is no focal mass within the testes. There is no evidence of torsion. Doppler flow is normal bilaterally. There is no hyperemia to suggest epididymitis or orchitis. By grayscale and Doppler, the epididymis appears normal bilaterally. There is no evidence varicocele. There is a trace amount fluid on the right which is likely within physiologic range. There is a moderate hydrocele on the left above that generally seen physiologically. No visible hernia within the scrotal sac and no evidence scrotal skin thickening Impression: 1. There is no evidence of testicular mass. There is no evidence of torsion. 2. Trace right hydrocele within physiologic range. 3. Moderate left hydrocele. Dictated by Jay Jay Howard MD @ Jun 02 2020 11:57AM Signed by Dr. Jay Jay Howard @ Jun 02 2020 12:02PM
[2020-06-02 12:34] VITALS: BP 119/65; PULSE 67
[2020-06-03 11:07] LABS: C.TRACHOMATIS BY TMA Negative (Negative); N.GONORRHOEAE BY TMA Negative (Negative)
--- NOTE | 2020-06-03 11:54 | US ---
EXAM DATE: 06/02/20 PATIENT'S AGE: 29 Patient: MILES KEITH Facility: [facility] Site . Site : 1990 Study: US-Testicle -06/02/2020 11:33:51 AM Ordering Physician: Henri Chaney Final Report: Indication: Testicular pain Technique: Sonography of the scrotum and its contents was performed. The study was performed by grayscale, color Doppler and spectral Doppler Comparison: None Findings: The testes are normal in size and configuration. There is no focal mass within the testes. There is no evidence of torsion. Doppler flow is normal bilaterally. There is no hyperemia to suggest epididymitis or orchitis. By grayscale and Doppler, the epididymis appears normal bilaterally. There is no evidence varicocele. There is a trace amount fluid on the right which is likely within physiologic range. There is a moderate hydrocele on the left above that generally seen physiologically. No visible hernia within the scrotal sac and no evidence scrotal skin thickening Impression: 1. There is no evidence of testicular mass. There is no evidence of torsion. 2. Trace right hydrocele within physiologic range. 3. Moderate left hydrocele. Dictated by Jay Jay Howard MD @ Jun 02 2020 11:57AM Signed by: Jay Jay Howard MD @06/02/2020 12:02:43 PM (Electronic Signature) Report Signed by Proxy. MAGALY
== END 2020-06-02 12:33 | disposition home or self-care (01) ==
LOC: MW.ED 10:21
DX: R10.31 Right lower quadrant pain (principal); J45.909 Unspecified asthma, uncomplicated; M41.9 Scoliosis, unspecified
CPT/HCPCS: 36415; 76870; 80053; 81003; 83605; 83690; 85025; 87491; 87591; 93976; 96374; 99284; J1885; 99283

== ENCOUNTER 2020-09-07 10:27 | Emergency (ER) | payer SELFPAY ==
[2020-09-07] MEDS ORDERED: Albuterol/Ipratropium 3.0-0.5 MG/3 ML Neb Soln ONE (10:29)
[2020-09-07] MEDS ORDERED: Albuterol/Ipratropium 3.0-0.5 MG/3 ML Neb Soln NEB ONE (10:42)
[2020-09-07] MEDS ORDERED: methylPREDNISolone Sodium Succinate 125 MG/2 ML SDV IM ONE (10:42)
--- NOTE | 2020-09-07 10:46 | EDM.PDOC ---
ED HPI GENERAL MEDICAL PROBLEM - General Chief Complaint: Respiratory Problem Stated Complaint: SOB CHEST PAIN Time Seen by Provider: 09/07/20 10:37 Source of Information: Reports: Patient History Limitations: Reports: No Limitations - History of Present Illness INITIAL COMMENTS - FREE TEXT/NARRATIVE: 29-year-old male past medical history asthma presents for apparent asthma exa cerbation. Patient notes that starting yesterday he was having chest tightness and shortness of breath associated with a cough with some mucus. Denies any fevers. Did not have an inhaler. Has not used antibiotics or steroids recently. States this feels typical of asthma exacerbation. - Related Data Allergies Allergy/AdvReac Type Severity Reaction Status Date / Time No Known Allergies Allergy Verified 09/07/20 10:40 Home Meds: Home Meds Fluticasone Propion/Salmeterol [Advair 250-50 Diskus] 1 puff INH DAILY 05/27/20 [History] Ibuprofen 600 mg PO Q6HR PRN #30 tablet 05/27/20 [Rx] Albuterol Sulfate [Proair Hfa] 1 puff INH ASDIRECTED 06/02/20 [History] oxyCODONE HCl/Acetaminophen [Percocet 5-325 mg Tablet] 1 each PO Q6H PRN #12 tablet 06/02/20 [Rx] Albuterol Sulfate [Proair Hfa] 8.5 gm IH Q4H PRN #1 hfa.aer.ad 09/07/20 [Rx] predniSONE [Prednisone] 40 mg PO DAILY #10 tablet 09/07/20 [Rx] Past Medical History Respiratory History: Reports: Asthma Musculoskeletal History: Reports: Other (See Below) Other Musculoskeletal History: sculiosis - Infectious Disease History Infectious Disease History: Reports: None Social & Family History - Family History Family Medical History: No Pertinent Family History - Caffeine Use Caffeine Use: Reports: Energy Drinks Caffeine Use Comment: 1 drink/day ED ROS GENERAL - Review of Systems Review Of Systems: Comprehensive ROS is negative, except as noted in HPI. ED EXAM, GENERAL - Physical Exam Exam: See Below Exam Limited By: No Limitations General Appearance: Alert, WD/WN, No Apparent Distress Nose: Normal Inspection Throat/Mouth: Normal Voice, No Airway Compromise Head: Atraumatic, Normocephalic Neck: Normal Inspection Respiratory/Chest: No Respiratory Distress, No Accessory Muscle Use, Wheezing Cardiovascular: Normal Peripheral Pulses, Regular Rate, Rhythm Extremities: Normal Inspection Neurological: Alert Psychiatric: Normal Affect, Normal Mood Skin Exam: Warm, Dry, Intact, Normal Color Course - Vital Signs Last Recorded V/S: Last Vital Signs Temp 97.0 F 09/07/20 10:30 Pulse 92 09/07/20 10:30 Resp 18 09/07/20 10:30 BP 132/84 09/07/20 10:30 Pulse Ox 93 L 09/07/20 10:30 - Orders/Labs/Meds Meds: Medications Discontinued Medications Generic Name Dose Route Start Last Admin Trade Name Freq PRN Reason Stop Dose Admin Albuterol/Ipratropium 3 ml 09/07/20 10:42 09/07/20 10:49 Duoneb 3.0-0.5 Mg/3 Ml NEB 09/07/20 10:43 3 ml ONETIME ONE Administration Methylprednisolone Sodium Succinate 125 mg 09/07/20 10:42 09/07/20 10:58 Solu-Medrol IM 09/07/20 10:43 125 mg ONETIME ONE Administration - Re-Assessments/Exams Free Text/Narrative Re-Assessment/Exam: 09/07/20 10:46 Patient presents with apparent asthma exacerbation. Will trial DuoNeb and steroids. Will get chest x-ray to rule out pneumonia. We will follow up results and disposition accordingly. 09/07/20 11:07 We will discharge patient home with albuterol inhaler and 5-day course of prednisone. Return precautions discussed at length. Departure - Departure Time of Disposition: 11:07 Disposition: Home, Self-Care 01 Condition: Good Clinical Impression: Asthma exacerbation Qualifiers: Asthma severity: unspecified severity Asthma persistence: unspecified Qualified Code(s): J45.901 - Unspecified asthma with (acute) exacerbation - Discharge Information Prescriptions: predniSONE [Prednisone] 40 mg PO DAILY #10 tablet Instructions: Asthma, Adult Referrals: PCP,None [Primary Care Provider] - Forms: ED Department Discharge Additional Instructions: The following information is given to patients seen in the emergency department who are being discharged to home. This information is to outline your options for follow-up care. We provide all patients seen in our emergency department with a follow-up referral. The need for follow-up, as well as the timing and circumstances, are variable depending upon the specifics of your emergency department visit. If you don't have a primary care physician on staff, we will provide you with a referral. We always advise you to contact your personal physician following an emergency department visit to inform them of the circumstance of the visit and for follow-up with them and/or the need for any referrals to a consulting specialist. The emergency department will also refer you to a specialist when appropriate. This referral assures that you have the opportunity for follow-up care with a specialist. All of these measure are taken in an effort to provide you with optimal care, which includes your follow-up. Under all circumstances we always encourage you to contact your private physician who remains a resource for coordinating your care. When calling for follow-up care, please make the office aware that this follow-up is from your recent emergency room visit. If for any reason you are refused follow-up, please contact the [facility] Emergency Department at and asked to speak to the emergency department charge nurse. Please follow up with your primary care physician. If you do not have a primary care physician, see below: [facility] [address] [place] [id number] [facility] [address] [place] [phone] [facility] [address] [place] [phone] Sepsis Event Note (ED) - Evaluation Sepsis Screening Result: No Definite Risk - Focused Exam Vital Signs: Vital Signs Temp Pulse Resp BP Pulse Ox 09/07/20 10:30 97.0 F 92 18 132/84 93 L
--- NOTE | 2020-09-07 11:05 | CR ---
INDICATION: cough, asthma. 1 image sent. prior 07-jul-2016 TECHNIQUE: Chest 1 view. COMPARISON: 07/07/16 FINDINGS: Cardiovascular and mediastinum: Heart size and vasculature are normal in caliber and appearance. Mediastinum is within normal limits. Lungs and pleural space: Lungs are clear. No sign of infiltrate or mass. No sign of pleural effusion. No pneumothorax. Bones and soft tissues: No significant findings. IMPRESSION: Unremarkable chest. Dictated by: Gerry Dexter MD @ 09/07/2020 11:03:51 (Electronically Signed)
[2020-09-07 11:12] VITALS: BP 126/78; PULSE 94
== END 2020-09-07 11:13 | disposition home or self-care (01) ==
LOC: MW.ED 10:27
DX: J45.901 Unspecified asthma with (acute) exacerbation (principal); M41.9 Scoliosis, unspecified; Z79.899 Other long term (current) drug therapy
CPT/HCPCS: 71045; 94640; 96372; 99284; J2930; 99283; J7620-GY